=== PATIENT | male | born 1960 | race Caucasian/White ===

== ENCOUNTER 2017-09-19 11:43 | Emergency (ER) | payer MEDICAID ==
[~2017-09-19] VITALS: Ht 182.9 cm; Wt 75.7 kg
[2017-09-19 11:48] VITALS: BP 134/77
--- NOTE | 2017-09-19 11:57 | NUR ---
A 57 YO M BIB SELF W/ C/O SORE THROAT X 3 MONTHS, NO WHITE PATCHES NOTED AT THIS TIME. PT REPORTS THAT HE DOES NOT FEEL WELL, DENIES FEVER, REPORTS HE HAS BEEN "UNABLE TO EAT MUCH , JUST DRINK FLUIDS" . DENIES N/V/D. PT REPORTS THAT HE WAS SEEN HERE FOR THE SAME THING 3 DAYS AGO AND HAS NOT GOTTEN BETTER. FEELS WEAK AND TIRED. PT AAOX4. AMBULATORY W/ STEADY GAIT. SPEAKING IN FULL SENTENCES. PT WAS GIVEN PRESCRIPTIONS OF CLINDAMYCIN, PREDNISONE, AND NORCO LAST WEEK UPON D/C AND HAS BEEN TAKING THEM W/ LITTLE IMPROVEMENT. REPORTS STEROID MAKES HIM FEEL A SMALL AMOUNT BETTER WITH THE ANTIBIOTIC. ER MD NOTIFIED. WILL CONTINUE TO MONITOR. NO FEVER PRESENT AT THIS TIME.
--- NOTE | 2017-09-19 11:57 | NUR ---
PT AMBULATED TO ER BED 03
[2017-09-19] MEDS ORDERED: LIDOCAINE VISCOUS 2% 20 ML UDC PO ONE (12:15)
[2017-09-19] MEDS ORDERED: NACL 0.9% 1,000 ML IV ONE (12:15)
[2017-09-19] MEDS ORDERED: CLINDAMYCIN 900 MG in DEXTROSE 5% 100 ML IV ONE (12:15)
[2017-09-19] MEDS ORDERED: CLINDAMYCIN 900 MG/6 ML VIAL IV ONE (12:39)
[2017-09-19 12:41] LABS: BASOPHILS % (AUTO) 0.1 % (0.0-2.0); HEMATOCRIT 43.6 % (36-52); HEMOGLOBIN 14.6 g/dL (12.0-18.0); LYMPHOCYTES # (AUTO) 0.4 K/uL (2.0-11.5); LYMPHOCYTES % (AUTO) 4.9 % (20.5-51.1); MEAN CORPUSCULAR HEMOGLOBIN 32 pg (27-31); MEAN CORPUSCULAR HGB CONC 34 g/dL (33-37); MEAN CORPUSCULAR VOLUME 94.3 fL (80-94); MONOCYTES # (AUTO) 0.2 K/uL (0.8-1.0); MONOCYTES % (AUTO) 2.6 % (1.7-9.3); NEUTROPHILS # (AUTO) 8.3 K/uL (1.8-7.7); NEUTROPHILS % (AUTO) 92.4 % (42.2-75.2); PLATELET COUNT (AUTO) 192 K/uL (140-450); RED BLOOD CELL COUNT(AUTO) 4.62 MIL/uL (4.20-6.10); RED CELL DISTRIBUTION WIDTH 13.2 % (11.6-13.7)
[2017-09-19 12:59] LABS: ANION GAP 8.6 (8-16); CARBON DIOXIDE 28.5 mmol/L (21-32); CREATININE 0.8 mg/dL (0.7-1.3); POTASSIUM 4.1 mmol/L (3.5-5.1)
--- NOTE | 2017-09-19 13:00 | NUR ---
PT. RESTING COMFORTABLY IN BED, RR EVEN AND UNLABORED. VSS. WILL CONTINUE TO MONITOR.
[2017-09-19 13:02] LABS: PROTHROMBIN TIME 9.3 secs (10.8-13.4)
[2017-09-19 13:04] LABS: ALBUMIN 3.1 g/dL (3.4-5.0); TOTAL BILIRUBIN 0.9 mg/dL (0.0-1.0)
--- NOTE | 2017-09-19 14:00 | NUR ---
PT. AMBULATED TO RESTROOM, STEADY GAIT, NO DIZZYNESS. WILL CONTINUE TO MONITOR.
[2017-09-19 14:14] VITALS: BP 126/72
--- NOTE | 2017-09-19 14:14 | NUR ---
Patient discharged with v/s stable. Written and verbal after care instructions given and explained. Patient alert, oriented and verbalized understanding of instructions. Ambulatory with steady gait. All questions addressed prior to discharge. ID band removed. Patient advised to follow up with PMD. Rx of MOTRIN 800G, AND TRAMADOL given; ER MD RYAN ADVISED TO CONTINUE ANTIBIOTICS. Patient educated on indication of medication including possible reaction and side effects. Opportunity to ask questions provided and answered.
== END 2017-09-19 14:14 | disposition home or self-care (01) ==
LOC: MED 11:43
DX: J36 Peritonsillar abscess (principal)
CPT/HCPCS: 36415; 42700; 80053; 85025; 85610; 85730; 96365; 99284; J3490

== ENCOUNTER 2021-08-11 15:02 | Emergency (ER) | payer SELFPAY ==
[~2021-08-11] VITALS: Ht 175.3 cm; Wt 77.6 kg
[2021-08-11 15:03] VITALS: BP 156/79
[2021-08-11] MEDS ORDERED: LIDOCAINE MPF 1% 10 MG/ML VIAL INJ ONE (15:10)
[2021-08-11] MEDS ORDERED: HYDROcodone/APAP 5/325 MG 1 TAB TAB PO ONE (15:15)
[2021-08-11] MEDS ORDERED: ceFAZolin 1,000 MG VIAL IM ONE (15:15)
--- NOTE | 2021-08-11 15:15 | NUR ---
AMBULATED TO ER BED 4
--- NOTE | 2021-08-11 15:30 | NUR ---
60YO MALE PT C/O SHARP R INDEX PAIN DUE TO AMPUTATION X1HOUR AGO. PT STATES A LOADING TRUCK DECK FELL ONTO HIS HAND. PT PRESENTS WITH AMPUTATION BELOW HIS R INDEX NAIL BED. FINGER TIP NOT INTACT, NO VISIBLE BONE. UPON ARRIVAL PT HAD FINGER WRAPPED WITH GAUZE AND BANDAGE TAPE, ACTIVE BLEEDING. PT IN VISIBLE PAIN HOLDING ON TO HAND . PT DENIES CHEST PAIN , N/D/V OR ANY OTHER INJURY. PT AAOX4, RESPIRATIONS EVEN AND UNLABORED. NKA NHX
[2021-08-11] MEDS ORDERED: WATER STERILE 10 ML MC ONE (15:33)
--- NOTE | 2021-08-11 16:05 | NUR ---
DR MALDONADO AT BEDSIDE FOR PROCEDURE
[2021-08-11] MEDS ORDERED: IBUP-2213 PO (16:49)
[2021-08-11] MEDS ORDERED: ACET-9525 PO (16:49)
[2021-08-11] MEDS ORDERED: AMOX1TAB8 PO (16:49)
[2021-08-11 17:20] VITALS: BP 110/67
--- NOTE | 2021-08-11 17:29 | NUR ---
Patient discharged with v/s stable. Written and verbal after care instructions FOR TRAUMATIC FINGER AMPUTATION AND NAIL BED given and explained. Patient alert, oriented and verbalized understanding of instructions. Ambulatory with steady gait. All questions addressed prior to discharge. ID band removed. Patient advised to follow up with PMD. Rx of HYDROCODONE, AMOXICILLIN AND IBUPROFEN given. Opportunity to ask questions provided and answered.
== END 2021-08-11 17:29 | disposition home or self-care (01) ==
LOC: MED 15:02
DX: S61.300A Unspecified open wound of right index finger with damage to nail, initial encounter (principal); Z79.899 Other long term (current) drug therapy; W45.8XXA Other foreign body or object entering through skin, initial encounter; Y93.89 Activity, other specified; Y92.89 Other specified places as the place of occurrence of the external cause; Y99.8 Other external cause status
CPT/HCPCS: 12001; 73140; 90471; 90715; 96372; 99284; J0690; J2001

== ENCOUNTER 2023-10-05 13:23 | Emergency (ER) | payer SELFPAY ==
[~2023-10-05] VITALS: Ht 177.8 cm; Wt 79.4 kg
[~2023-10-05 13:23] MED LIST: ACET-9525 PO; AMOX1TAB8 PO; IBUP-2213 PO
[2023-10-05 13:45] VITALS: BP 133/85; PULSE 62; RESP 20; TEMP 98; O2SAT 98
[2023-10-05] MEDS ORDERED: SODI15SO RIGHT EYE (14:02)
[2023-10-05 14:22] VITALS: BP 133/85; PULSE 62; RESP 20; TEMP 98; O2SAT 98
== END 2023-10-05 14:22 | disposition home or self-care (01) ==
LOC: MED 13:23
DX: H11.31 Conjunctival hemorrhage, right eye (principal); Z79.1 Long term (current) use of non-steroidal anti-inflammatories (NSAID); Z79.2 Long term (current) use of antibiotics; Z79.899 Other long term (current) drug therapy
CPT/HCPCS: 99282